=== PATIENT | female | born 1995 | race Caucasian/White ===

== ENCOUNTER 2017-01-13 00:14 | Emergency (ER) | payer MEDICAID ==
[2011-03-08 07:01] VITALS: BMI 19.5
== END 2017-01-13 01:54 | disposition left against medical advice (07) ==
LOC: D.ER 00:14
DX: R50.9 Fever, unspecified (principal)

== ENCOUNTER 2020-03-15 14:00 | Emergency (ER) | payer SELFPAY ==
[~2020-03-15] VITALS: Ht 165.1 cm; Wt 68.2 kg
[2020-03-15 14:25] VITALS: Ht 165.1 cm; Wt 68.2 kg
[2020-03-15 15:20] LABS: BILIRUBIN NEGATIVE (NEGATIVE); GLUCOSE NEGATIVE (NEGATIVE); HCG URINE NEGATIVE (NEGATIVE); KETONE NEGATIVE (NEGATIVE); NITRITE NEGATIVE (NEGATIVE); UROBILINOGEN NORMAL (NORMAL)
[2020-03-15] MEDS ORDERED: VOLTAREN75 MG PO (16:10)
[2020-03-15] MEDS ORDERED: BACLOFEN20 M1 PO (16:10)
[2020-03-15 16:49] VITALS: BP 106/61
== END 2020-03-15 16:49 | disposition home or self-care (01) ==
LOC: D.ER 14:00
PROVIDERS: Family Medicine
DX: M54.5 Low back pain (principal); M19.90 Unspecified osteoarthritis, unspecified site; E11.9 Type 2 diabetes mellitus without complications; J45.909 Unspecified asthma, uncomplicated; Z72.0 Tobacco use; M62.838 Other muscle spasm